=== PATIENT | male | born 1950 | race Caucasian/White ===

== ENCOUNTER 2017-07-23 10:03 | Emergency (ER) | payer MEDICARE ==
[2017-07-23 10:14] VITALS: TEMP 98.7
--- NOTE | 2017-07-23 11:06 | RAD ---
PROCEDURE: Radiographs of the chest and abdomen (obstructive series) HISTORY: cough COMPARISON: Prior chest radiograph 03/17/2015. TECHNIQUE: AP radiograph of the chest, with upright and supine radiographs of the abdomen. FINDINGS: CHEST: Lungs: No acute infiltrate is appreciated however there is a stable calcified granuloma again seen the inferior right lung zone laterally. Cardiovascular: Normal size heart. No pulmonary vascular congestion. Pleura: No pleural fluid. No pneumothorax. Other findings: None. ABDOMEN AND PELVIS: Bowel: There is a nonobstructive bowel gas pattern with prominent retained fecal material suggested at the splenic flexure/ proximal descending colon region. Free air: None. Bones: Unremarkable. Other findings: None. IMPRESSION: Prominent retained fecal material seen at the splenic flexure and proximal descending colon segment. Clinically correlate further. If CT of the abdomen and pelvis is ordered, then perform this exam with oral and intravenous contrast for better characterization of the splenic flexure and descending colon. No evidence of mechanical bowel obstruction.
--- NOTE | 2017-07-23 11:31 | C.PDOC ---
History Of Present Illness 66 y/o male c/o productive cough for 2 days. Denies fever or chills. Denies chest pain or SOB. Denies tobacco use. Time Seen by Provider: 07/23/17 10:22 Chief Complaint (Nursing): Cough, Cold, Congestion History Per: Patient History/Exam Limitations: no limitations Onset/Duration Of Symptoms: Days (2) Current Symptoms Are (Timing): Still Present Severity: Mild Recent travel outside of the [place]: No Additional History Per: Patient Past Medical History Reviewed: Historical Data, Nursing Documentation, Vital Signs Vital Signs: Last Vital Signs Temp 98.7 F 07/23/17 10:10 Pulse 74 07/23/17 11:40 Resp 16 07/23/17 11:40 BP 135/84 07/23/17 11:40 Pulse Ox 97 07/23/17 12:29 - Medical History PMH: HTN, Hypercholesterolemia Family History: States: Unknown Family Hx - Social History Hx Alcohol Use: No Hx Substance Use: No - Immunization History Hx Tetanus Toxoid Vaccination: No Hx Influenza Vaccination: Yes Hx Pneumococcal Vaccination: No Review Of Systems Except As Marked, All Systems Reviewed And Found Negative. Constitutional: Negative for: Fever, Chills Cardiovascular: Negative for: Chest Pain, Palpitations, Orthopnea, Edema, Light Headedness Respiratory: Positive for: Cough. Negative for: Shortness of Breath, SOB with Excertion, Wheezing Gastrointestinal: Negative for: Nausea, Vomiting, Abdominal Pain, Constipation Genitourinary: Negative for: Dysuria Musculoskeletal: Negative for: Neck Pain Neurological: Negative for: Weakness, Numbness Physical Exam - Physical Exam Appears: Well, Non-toxic, No Acute Distress Skin: Warm, Dry Head: Atraumatic, Normacephalic Eye(s): bilateral: Normal Inspection, PERRL, EOMI Ear(s): Bilateral: Normal Oral Mucosa: Moist Throat: Normal, No Erythema Neck: Supple Cardiovascular: Rhythm Regular Respiratory: Normal Breath Sounds, No Rales, No Rhonchi, No Wheezing Gastrointestinal/Abdominal: Soft, No Tenderness, No Distention Back: Normal Inspection, No CVA Tenderness Extremity: Normal ROM Neurological/Psych: Oriented x3, Normal Speech, Normal Cognition Gait: Steady ED Course And Treatment O2 Sat by Pulse Oximetry: 97 (RA) Pulse Ox Interpretation: Normal Medical Decision Making Medical Decision Making: Impression: * productive cough for 2 days. 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 CHEST: Lungs: No acute infiltrate is appreciated however there is a stable calcified granuloma again seen the inferior right lung zone laterally. Cardiovascular: Normal size heart. No pulmonary vascular congestion. Pleura: No pleural fluid. No pneumothorax. Other findings: None. Patient is in no acute distress at this time. He has normal vitals and is well appearing. Cxray negative for pneumonia. Will dc with cough medication. Disposition - Disposition Disposition: HOME/ ROUTINE Disposition Time: 11:32 Condition: GOOD Additional Instructions: Take cough medication as needed. Return to ED if condition worsens. Follow-up with PMD within 2 days Prescriptions: Benzonatate [Tessalon Perles] 100 mg PO TID PRN #20 sgl PRN Reason: Cough Instructions: Upper Respiratory Infection (ED) Forms: [facility] (Irish) - Clinical Impression Clinical Impression: Cough - Scribe Statement The provider has reviewed the documentation as recorded by the Scribe Lakshmi hemphill All medical record entries made by the Scribe were at my direction and personally dictated by me. I have reviewed the chart and agree that the record accurately reflects my personal performance of the history, physical exam, medical decision making, and the department course for this patient. I have also personally directed, reviewed, and agree with the discharge instructions and disposition.
[2017-07-23 11:40] VITALS: BP 135/84; PULSE 74; RESP 16
[2017-07-23 12:26] VITALS: O2SAT 97
== END 2017-07-23 11:39 | disposition home or self-care (01) ==
LOC: C.ER 10:03
DX: R05 Cough (principal)

== ENCOUNTER 2019-03-01 13:43 | Outpatient (CLI) | payer MEDICARE | END 2019-03-01 13:44 | disposition home or self-care (01) | LOC: C.LAB 13:43 | DX: Z12.11 Encounter for screening for malignant neoplasm of colon (principal) ==